=== PATIENT | female | born 1935 | race Caucasian/White ===

== ENCOUNTER 2024-09-04 17:37 | Inpatient (IN) | payer MEDICARE ==
[~2024-09-04] VITALS: Ht 154.4 cm; Wt 45.4 kg
[2024-09-04] MEDS ORDERED: PANT40TA2 PO (17:47)
[2024-09-04] MEDS ORDERED: HYDR25TA4 PO (17:47)
[2024-09-04] MEDS ORDERED: MORPHINE SULFATE 4 MG/1 ML DISP.SYRIN ONE (18:10)
[2024-09-04] MEDS ORDERED: METOCLOPRAMIDE HCL 10 MG/2 ML VIAL ONE (18:10)
[2024-09-04] MEDS: MORPHINE SULFATE 4 MG/1 ML DISP.SYRIN IV ONE (18:11)
[2024-09-04] MEDS: METOCLOPRAMIDE HCL 10 MG/2 ML VIAL IV ONE (18:11)
[2024-09-04 18:12] LABS: BASOPHILS % (AUTO) 0.7 % (0.0-2.0); EOSINOPHILS # (AUTO) 0.1 K/uL (0.0-0.7); EOSINOPHILS % (AUTO) 1.9 % (0.0-7.0); HEMATOCRIT 34.7 % (31.2-41.9); HEMOGLOBIN 11.8 g/dL (10.9-14.3); LYMPHOCYTES # (AUTO) 1.1 K/uL (0.8-4.8); LYMPHOCYTES % (AUTO) 16.1 % (20.5-51.5); MEAN CORPUSCULAR HEMOGLOBIN 32.6 uug (24.7-32.8); MEAN CORPUSCULAR HGB CONC 34 g/dL (32.3-35.6); MEAN CORPUSCULAR VOLUME 95.6 fL (75.5-95.3); MONOCYTES # (AUTO) 0.6 K/uL (0.1-1.30); MONOCYTES % (AUTO) 8.9 % (0.0-11.0); NEUTROPHILS # (AUTO) 4.9 K/uL (1.8-8.9); NEUTROPHILS % (AUTO) 72.4 % (38.5-71.5); PLATELET COUNT (AUTO) 292 K/uL (179-408); RED BLOOD CELL COUNT(AUTO) 3.63 MIL/uL (3.63-4.92); RED CELL DISTRIBUTION WIDTH 14.3 % (12.3-17.7); WHITE BLOOD COUNT (AUTO) 6.8 K/uL (3.8-11.8)
[2024-09-04 18:19] LABS: DIFFERENTIAL COMMENT 1
[2024-09-04 18:20] LABS: CARBON DIOXIDE 29 mmol/L (21-32); CHLORIDE 104 mmol/L (98-107); CREATININE 0.8 mg/dL (0.6-1.3); GLUCOSE 132 mg/dL (74-106); POTASSIUM 3.6 mmol/L (3.5-5.1); SODIUM SERUM 140 mmol/L (136-145); UREA NITROGEN, BLOOD 21 mg/dL (7-18)
[2024-09-04 18:32] LABS: ALANINE AMINOTRANSFERASE 33 U/L (14-59); ALBUMIN 3.2 g/dL (3.4-5.0); ALKALINE PHOSPHATASE 93 U/L (50-136); ASPARTATE AMINOTRANSFERASE 24 U/L (15-37); BILIRUBIN,DIRECT 0.1 mg/dL (0.0-0.2); BILIRUBIN,TOTAL 0.4 mg/dL (0.2-1.0); CALCIUM 8.9 mg/dL (8.5-10.1); TOTAL PROTEIN, SERUM 6.5 g/dL (6.4-8.2)
[2024-09-04 18:40] VITALS: BP 144/80; TEMP 98.1; O2SAT 99
[2024-09-04] MEDS ORDERED: ONDANSETRON 4 MG/2 ML VIAL IV PRN (20:00)
[2024-09-04] MEDS ORDERED: REMEDY ESSENTIAL ZINC PASTE 113 GM TP PRN (20:00)
[2024-09-04] MEDS: IV NS 1000 ML 1,000 ML IV PRN (23:25)
[2024-09-05 05:55] LABS: BASOPHILS % (AUTO) 0.4 % (0.0-2.0); EOSINOPHILS # (AUTO) 0.1 K/uL (0.0-0.7); EOSINOPHILS % (AUTO) 1.3 % (0.0-7.0); HEMATOCRIT 31.3 % (31.2-41.9); HEMOGLOBIN 10.8 g/dL (10.9-14.3); LYMPHOCYTES # (AUTO) 1.3 K/uL (0.8-4.8); LYMPHOCYTES % (AUTO) 15.3 % (20.5-51.5); MEAN CORPUSCULAR HEMOGLOBIN 33.1 uug (24.7-32.8); MEAN CORPUSCULAR HGB CONC 35 g/dL (32.3-35.6); MEAN CORPUSCULAR VOLUME 95.5 fL (75.5-95.3); MONOCYTES # (AUTO) 0.9 K/uL (0.1-1.30); MONOCYTES % (AUTO) 10.7 % (0.0-11.0); NEUTROPHILS # (AUTO) 6.2 K/uL (1.8-8.9); NEUTROPHILS % (AUTO) 72.3 % (38.5-71.5); PLATELET COUNT (AUTO) 252 K/uL (179-408); RED BLOOD CELL COUNT(AUTO) 3.27 MIL/uL (3.63-4.92); RED CELL DISTRIBUTION WIDTH 14.3 % (12.3-17.7); WHITE BLOOD COUNT (AUTO) 8.5 K/uL (3.8-11.8)
[2024-09-05 06:01] LABS: CALCIUM 8.8 mg/dL (8.5-10.1); CARBON DIOXIDE 27 mmol/L (21-32); CHLORIDE 105 mmol/L (98-107); CREATININE 0.6 mg/dL (0.6-1.3); GLUCOSE 96 mg/dL (74-106); POTASSIUM 3.6 mmol/L (3.5-5.1); SODIUM SERUM 140 mmol/L (136-145); UREA NITROGEN, BLOOD 18 mg/dL (7-18)
[2024-09-05 06:08] LABS: DIFFERENTIAL COMMENT 1
[2024-09-05] MEDS: PANTOPRAZOLE SODIUM 40 MG TABLET.DR PO SCH (06:58)
[2024-09-05 07:51] VITALS: BP 149/83; TEMP 98; O2SAT 99
[2024-09-05] MEDS: HYDROCHLOROTHIAZIDE 25 MG TABLET PO SCH (08:31)
[2024-09-05] MEDS ORDERED: PANTOPRAZOLE SODIUM 40 MG TABLET.DR PO SCH (09:00)
[2024-09-05] MEDS ORDERED: LOSA25TA27 PO (10:48)
[2024-09-05] MEDS ORDERED: ALEN70TA3 PO (10:48)
[2024-09-05 11:27] VITALS: BP 154/70; TEMP 98.1; O2SAT 98
[2024-09-05] MEDS: MORPHINE SULFATE 2 MG/1 ML DISP.SYRIN IV PRN (15:14)
[2024-09-05 15:49] VITALS: BP 161/83; TEMP 99; O2SAT 97
[2024-09-05] MEDS: ACETAMINOPHEN 325 MG TABLET PO PRN (16:58)
[2024-09-05 19:40] VITALS: BP 98/62; TEMP 97.9; O2SAT 98
[2024-09-06] VITALS (7 sets, daily range): BP systolic 82–150; BP diastolic 44–71; TEMP 97.9–98.4; O2SAT 96–100
[2024-09-06] MEDS: LOSARTAN POTASSIUM 25 MG TABLET PO SCH (08:53)
[2024-09-06] MEDS ORDERED: PROPOFOL 200 MG/20 ML BOTTLE ONE (10:30)
[2024-09-06] MEDS ORDERED: VANCOMYCIN 1000 MG VIAL ONE (11:14)
[2024-09-06] MEDS ORDERED: FENTANYL CITRATE 100 MCG/2 ML AMPUL IV PRN (12:45)
[2024-09-06] MEDS: IV D5W-0.45% NS +20 KCL 1,000 ML IV PRN (13:50)
[2024-09-06] MEDS: MAGNESIUM HYDROXIDE 30 ML LIQUID UDC PO PRN (15:32)
[2024-09-06] MEDS: IV NORMAL SALINE 250 ML IV ONE (17:10)
[2024-09-06] MEDS ORDERED: IV NORMAL SALINE 250 ML IV ONE (17:15)
[2024-09-06] MEDS: CEFAZOLIN 1 G in IV DEXTROSE 5% 50 ML IV SCH (19:36)
[2024-09-07 05:30] VITALS: BP 106/55; TEMP 98.8; O2SAT 98
[2024-09-07 06:40] LABS: BASOPHILS % (AUTO) 0.3 % (0.0-2.0); EOSINOPHILS # (AUTO) 0.1 K/uL (0.0-0.7); EOSINOPHILS % (AUTO) 1.1 % (0.0-7.0); HEMATOCRIT 23.7 % (31.2-41.9); HEMOGLOBIN 8.3 g/dL (10.9-14.3); LYMPHOCYTES # (AUTO) 1.1 K/uL (0.8-4.8); LYMPHOCYTES % (AUTO) 12.9 % (20.5-51.5); MEAN CORPUSCULAR HEMOGLOBIN 33.5 uug (24.7-32.8); MEAN CORPUSCULAR HGB CONC 35 g/dL (32.3-35.6); MONOCYTES # (AUTO) 1.3 K/uL (0.1-1.30); MONOCYTES % (AUTO) 15.9 % (0.0-11.0); NEUTROPHILS # (AUTO) 5.8 K/uL (1.8-8.9); NEUTROPHILS % (AUTO) 69.8 % (38.5-71.5); PLATELET COUNT (AUTO) 226 K/uL (179-408); RED CELL DISTRIBUTION WIDTH 14.9 % (12.3-17.7); WHITE BLOOD COUNT (AUTO) 8.3 K/uL (3.8-11.8)
[2024-09-07 06:57] LABS: CALCIUM 8.2 mg/dL (8.5-10.1); CARBON DIOXIDE 28 mmol/L (21-32); CHLORIDE 102 mmol/L (98-107); CREATININE 0.8 mg/dL (0.6-1.3); GLUCOSE 132 mg/dL (74-106); PHOSPHOROUS 2.9 mg/dL (2.5-4.9); POTASSIUM 4.5 mmol/L (3.5-5.1); SODIUM SERUM 135 mmol/L (136-145); UREA NITROGEN, BLOOD 25 mg/dL (7-18)
[2024-09-07 07:04] LABS: DIFFERENTIAL COMMENT 1; RED BLOOD CELL COUNT(AUTO) 2.49 MIL/uL (3.63-4.92)
[2024-09-07 11:45] VITALS: BP 117/60; TEMP 97.9; O2SAT 99
[2024-09-07] MEDS ORDERED: HYDR-3972 PO (12:08)
[2024-09-07 12:34] LABS: EOSINOPHILS % (MANUAL) 1 % (0-8); LYMPHOCYTES % (MANUAL) 13 % (20-40); MONOCYTES % (MANUAL) 16 % (2-10); NEUTROPHILS % (MANUAL) 70 % (42-75); PLATELET ESTIMATE ADEQUATE
[2024-09-07 13:15] LABS: BASOPHILS % (AUTO) 0.2 % (0.0-2.0); DIFFERENTIAL COMMENT 1; EOSINOPHILS % (AUTO) 0.4 % (0.0-7.0); HEMATOCRIT 23.7 % (31.2-41.9); HEMOGLOBIN 8.2 g/dL (10.9-14.3); LYMPHOCYTES % (AUTO) 10.1 % (20.5-51.5); MEAN CORPUSCULAR HEMOGLOBIN 33.3 uug (24.7-32.8); MEAN CORPUSCULAR HGB CONC 35 g/dL (32.3-35.6); MEAN CORPUSCULAR VOLUME 96.1 fL (75.5-95.3); MONOCYTES # (AUTO) 1.1 K/uL (0.1-1.30); MONOCYTES % (AUTO) 11.1 % (0.0-11.0); NEUTROPHILS # (AUTO) 7.7 K/uL (1.8-8.9); NEUTROPHILS % (AUTO) 78.2 % (38.5-71.5); PLATELET COUNT (AUTO) 238 K/uL (179-408); RED BLOOD CELL COUNT(AUTO) 2.47 MIL/uL (3.63-4.92); RED CELL DISTRIBUTION WIDTH 14.6 % (12.3-17.7); WHITE BLOOD COUNT (AUTO) 9.8 K/uL (3.8-11.8)
[2024-09-07] MEDS: IV NORMAL SALINE 250 ML IV ONE (14:28)
[2024-09-07 16:59] VITALS: BP 145/70; TEMP 98; O2SAT 99
[2024-09-07 20:00] VITALS: TEMP 98
[2024-09-07] MEDS: MORPHINE SULFATE 2 MG/1 ML DISP.SYRIN IV PRN (22:42)
[2024-09-08 04:00] VITALS: BP 145/75; TEMP 98.7; O2SAT 97
[2024-09-08] MEDS: HYDROCODONE/APAP 5-325MG TABLET PO PRN (09:04)
[2024-09-08] MEDS: ENOXAPARIN SODIUM 40 MG/0.4 ML DISP.SYRIN SQ SCH (09:07)
[2024-09-08 11:47] VITALS: BP 102/48; TEMP 98.1; O2SAT 99
[2024-09-08 13:00] VITALS: BP 103/59
[2024-09-08 15:51] VITALS: BP 110/61; TEMP 97.8; O2SAT 100
[2024-09-08 19:48] VITALS: BP 123/63; TEMP 97.7; O2SAT 98
[2024-09-09 04:46] VITALS: BP 128/73; TEMP 97.7; O2SAT 99
[2024-09-09] MEDS ORDERED: ENOX40DI SQ (10:14)
[2024-09-09 11:05] VITALS: BP 136/72; TEMP 97.6; O2SAT 99
[2024-09-10] MEDS ORDERED: ENSURE ENLIVE (VAN) 240 ML LIQUID PO SCH (08:00)
== END 2024-09-09 13:41 | DRG 481 ==
LOC: ER 17:37 → MEDSURG3 20:06
PROVIDERS: ADMIT Nurse Practitioner Acute Care; ATTEND Nurse Practitioner Acute Care
PROC: 0QS636Z Reposition Right Upper Femur with Intramedullary Internal Fixation Device, Percutaneous Approach (ICD-10-PCS; principal; 2024-09-06)
DX: S72.141A Displaced intertrochanteric fracture of right femur, initial encounter for closed fracture (principal); D68.59 Other primary thrombophilia; W19.XXXA Unspecified fall, initial encounter; Y92.89 Other specified places as the place of occurrence of the external cause; D69.6 Thrombocytopenia, unspecified; R26.9 Unspecified abnormalities of gait and mobility; I10 Essential (primary) hypertension; K21.9 Gastro-esophageal reflux disease without esophagitis; Z75.1 Person awaiting admission to adequate facility elsewhere; Z74.09 Other reduced mobility
CPT/HCPCS: 36415; 71045; 72170; 73503; 83735; 84100; 85025; 85730; 93307; A4649; A4663; C1713; G0378; J0690; J1650; J2270; J2765; J3370; J3490; J7040